=== PATIENT | male | born 1995 | race American Indian/Alaskan Native ===

== ENCOUNTER 2019-02-27 17:04 | Emergency (ER) | payer SELFPAY ==
--- NOTE | 2019-02-27 19:26 | Emergency Department Report ---
Chief Complaint: Sore Throat Stated Complaint: CHEST PAIN Time Seen by Provider: 02/27/19 19:24 - HPI History of Present Illness: This is a 23 y.o. M. that presents to the ER with sore throat, fever, chills, and cough for 3 days. Taking cough syrup. Current marijuana smoker. PMH of Asthma - Exam Vital Signs: Vital Signs 02/27/19 19:24 Temperature 103 F H Pulse Rate 105 H Respiratory 18 Rate Blood Pressure 134/84 O2 Sat by Pulse 97 Oximetry MSE screening note: Focused history and physical exam performed. Due to findings the following was ordered: Rapid strep Given analgesics ED Disposition for MSE Condition: Stable
[2019-02-27 19:27] VITALS: BP 134/84
[2019-02-27] MEDS ORDERED: IBUPROFEN 600 MG TAB PO ONE ×2 (19:27→19:31)
--- NOTE | 2019-02-28 00:17 | Emergency Department Report ---
ED Neck Pain/Injury HPI - General Chief Complaint: Sore Throat Stated Complaint: CHEST PAIN Time Seen by Provider: 02/27/19 19:24 Mode of arrival: Ambulatory Limitations: No Limitations - History of Present Illness Initial Comments: Mr. Lee presents for Congestion pain and fever cough productive yellow generalized fever for 1022.7. pt has hx of asthma, ytmtps sotarat ed 3 weeks to [facility] . Onset/Timin,000 -: Sudden, During the night Place: home Radiation: left lateral, head, occiput Severity: moderate Quality: burning, stabbing, tingling Improves With: none, cold therapy, movement Worsens With: none Context: fall Associated Symptoms: none Treatments Prior to Arrival: none, Acetaminophen - Related Data Previous Rx's Medication Instructions Recorded Last Taken Type Acetaminophen/Codeine [Tylenol 1 tab PO Q6H PRN #12 tab 02/28/19 Unknown Rx /Codeine # 3 tab] Amoxicillin/Potassium Clav 1 each PO BID 10 Days #30 tablet 02/28/19 Unknown Rx [Augmentin 875-125 Tablet] diphenhydrAMINE [Benadryl CAP] 25 mg PO Q8HR PRN #30 capsule 02/28/19 Unknown Rx predniSONE [Deltasone] 40 mg PO QDAY #20 tab 02/28/19 Unknown Rx Allergies Allergy/AdvReac Type Severity Reaction Status Date / Time No Known Allergies Allergy Unverified 02/27/19 17:23 ED Review of Systems ROS: Stated complaint: CHEST PAIN Other details as noted in HPI Constitutional: denies: chills, fever Eyes: denies: eye pain, eye discharge, vision change ENT: denies: ear pain, throat pain Respiratory: denies: cough, shortness of breath, wheezing Cardiovascular: denies: chest pain, palpitations Endocrine: no symptoms reported Gastrointestinal: denies: abdominal pain, nausea, diarrhea Genitourinary: denies: urgency, dysuria Musculoskeletal: back pain. denies: joint swelling Skin: denies: rash, lesions Neurological: denies: headache, weakness, paresthesias Psychiatric: denies: anxiety, depression Hematological/Lymphatic: denies: easy bleeding, easy bruising ED Past Medical Hx - Past Medical History Previous Medical History?: No - Surgical History Past Surgical History?: No - Social History Smoking Status: Never Smoker Substance Use Type: Marijuana - Medications Home Medications: Home Medications Medication Instructions Recorded Confirmed Last Taken Type Acetaminophen/Codeine [Tylenol 1 tab PO Q6H PRN #12 tab 02/28/19 Unknown Rx /Codeine # 3 tab] Amoxicillin/Potassium Clav 1 each PO BID 10 Days #30 tablet 02/28/19 Unknown Rx [Augmentin 875-125 Tablet] diphenhydrAMINE [Benadryl CAP] 25 mg PO Q8HR PRN #30 capsule 02/28/19 Unknown Rx predniSONE [Deltasone] 40 mg PO QDAY #20 tab 02/28/19 Unknown Rx ED Physical Exam - General Limitations: No Limitations General appearance: alert, in no apparent distress - Head Head exam: Present: atraumatic, normocephalic - Eye Eye exam: Present: normal appearance, PERRL, EOMI Pupils: Present: normal accommodation - ENT ENT exam: Present: mucous membranes moist - Neck Neck exam: Present: normal inspection - Respiratory Respiratory exam: Present: normal lung sounds bilaterally. Absent: respiratory distress - Cardiovascular Cardiovascular Exam: Present: regular rate, normal rhythm. Absent: systolic murmur, diastolic murmur, rubs, gallop - GI/Abdominal GI/Abdominal exam: Present: soft, normal bowel sounds - Rectal Rectal exam: Present: deferred - Extremities Exam Extremities exam: Present: normal inspection - Back Exam Back exam: Present: normal inspection, full ROM - Neurological Exam Neurological exam: Present: alert, oriented X3 - Psychiatric Psychiatric exam: Present: normal affect, normal mood - Skin Skin exam: Present: warm, dry, intact, normal color. Absent: rash ED Course Vital Signs 02/27/19 19:24 Temperature 103 F H Pulse Rate 105 H Respiratory 18 Rate Blood Pressure 134/84 O2 Sat by Pulse 97 Oximetry Critical care attestation.: If time is entered above; I have spent that time in minutes in the direct care of this critically ill patient, excluding procedure time. ED Disposition Clinical Impression: Sinusitis URI (upper respiratory infection) Qualifiers: URI type: unspecified viral URI Qualified Code(s): J06.9 - Acute upper respiratory infection, unspecified Disposition: DC-01 TO HOME OR SELFCARE Is pt being admited?: No Does the pt Need Aspirin: No Condition: Stable Instructions: Acute Bacterial Rhinosinusitis (ED) Prescriptions: Amoxicillin/Potassium Clav [Augmentin 875-125 Tablet] 1 each PO BID 10 Days #30 tablet diphenhydrAMINE [Benadryl CAP] 25 mg PO Q8HR PRN #30 capsule PRN Reason: Congestion predniSONE [Deltasone] 40 mg PO QDAY #20 tab Acetaminophen/Codeine [Tylenol /Codeine # 3 tab] 1 tab PO Q6H PRN #12 tab PRN Reason: pain Time of Disposition: 00:37
== END 2019-02-28 01:00 | disposition home or self-care (01) ==
LOC: ED 17:04
DX: J32.9 Chronic sinusitis, unspecified (principal); J06.9 Acute upper respiratory infection, unspecified; F12.10 Cannabis abuse, uncomplicated
CPT/HCPCS: 87116; 87430; 99283